=== PATIENT | female | born 1960 | race Caucasian/White ===

== ENCOUNTER → 2018-06-12 11:07 | Outpatient (CLI) | payer OTHER, MEDICAID, SELFPAY ==
--- NOTE | 2018-06-12 | DI.RAD.S_ITS ---
PROCEDURE: XR CHEST 2V INDICATIONS: COUGH / WT LOSS TECHNIQUE: 2 views of the chest were acquired. COMPARISON: None. FINDINGS: Surgical changes and devices: None. Lungs and pleura: No pleural effusions or pneumothorax. Lungs are clear. Mediastinum: Mediastinal contours are normal. Heart size is normal. Bones and chest wall: No suspicious bony abnormalities. Soft tissues appear unremarkable. IMPRESSION: Normal for age, source of current cough symptoms is not seen. Dictated by: Benito Ibarra M.D. on 06/12/2018 at 12:17 Approved by: Benito Ibarra M.D. on 06/12/2018 at 12:17
== END ==
PROVIDERS: PCP Family Medicine; Visit Provider Family Medicine
DX: R05 Cough (principal); R63.4 Abnormal weight loss
CPT/HCPCS: 71046

== ENCOUNTER → 2018-09-30 10:40 | Outpatient (CLI) | payer OTHER, MEDICAID, SELFPAY ==
--- NOTE | 2018-09-30 | DI.RAD.S_ITS ---
PROCEDURE: XR CERVICAL SPINE 2V OR 3V INDICATIONS: NECK PAIN TECHNIQUE: 3 view(s) of the cervical spine were acquired. COMPARISON: None. FINDINGS: Bones: No fractures or dislocations to the C7-T1 level. The lateral masses of C1 appear intact on the odontoid view. No suspicious bony lesions. There is overall straightening of normal cervical curvature. Moderate to severe disc space narrowing is present C6-7, mild at C5-6 and C7-T1. Small anterior osteophytes are present. Soft tissues: No prevertebral soft tissue swelling. IMPRESSION: Cervical straightening with degenerative change. Dictated by: Coby Mccray M.D. on 09/30/2018 at 12:53 Approved by: Coby Mccray M.D. on 09/30/2018 at 12:54
== END ==
PROVIDERS: PCP Family Medicine; Visit Provider Family Medicine
DX: M54.2 Cervicalgia (principal); M47.812 Spondylosis without myelopathy or radiculopathy, cervical region
CPT/HCPCS: 72040

== ENCOUNTER → 2019-02-18 11:43 | Outpatient (CLI) | payer OTHER, MEDICAID, SELFPAY ==
--- NOTE | 2019-02-18 | DI.US.S_ITS ---
PROCEDURE: US EXTREMITY NONVASC UPPER LT INDICATIONS: LEFT FOREARM MASS TECHNIQUE: Real-time scanning was performed of the left forearm, with image documentation. COMPARISON: None. FINDINGS: Focus ultrasound examination in left forearm the patient's reported area of palpable lump shows 5.2 x 0.9 x 4 cm fairly homogeneously echogenic structure within forearm subcutaneous soft tissue. No significant internal vascularity is seen. No evidence of underlying muscle involvement. IMPRESSION: 5.2 x 0.9 x 4 cm solid appearing lesion involving subcutaneous soft tissue of left forearm, and may represent lipoma. Clinical correlation and followup is recommended. If indicated, MRI of left forearm can be done for further evaluation. Dictated by: Brayan Lott M.D. on 02/18/2019 at 15:43 Approved by: Brayan Lott M.D. on 02/18/2019 at 15:45
== END ==
PROVIDERS: PCP Student in an Organized Health Care Education/Training Program; Visit Provider Student in an Organized Health Care Education/Training Program
DX: R22.32 Localized swelling, mass and lump, left upper limb (principal)
CPT/HCPCS: 76882

== ENCOUNTER → 2019-05-01 12:27 | Outpatient (CLI) | payer OTHER, MEDICAID, SELFPAY ==
--- NOTE | 2019-05-01 12:28 | DI.MRI.S_ITS ---
PROCEDURE: MR CERVICAL SPINE WO CON INDICATIONS: Cervical radiculopathy TECHNIQUE: Noncontrast sagittal T1 spin echo and T2 fast spin echo, sagittal STIR, foraminal oblique sagittal T2 fast spin echo, and axial gradient echo or T2 fast spin echo through the cervical spine. COMPARISON: [facility], , C-SPINE WITHOUT CONTRAST, 10/03/2009, 17:05. FINDINGS: Image quality: Excellent. Alignment and Curvature: There is mild straightening of normal cervical lordosis. No spondylolisthesis. Bone Marrow: Marrow demonstrates normal overall signal. Spinal Cord: Visualized spinal cord has normal size and signal. No cerebellar tonsillar herniation. Paraspinous Soft Tissues: No paravertebral masses. Prevertebral soft tissues are normal in thickness. C2-C3: Normal appearance. C3-C4: Mild broad-based disc bulge and bilateral facet hypertrophic changes are seen with mild central canal stenosis and left-sided neuroforaminal narrowing. C4-C5: Broad-based disc bulge and bilateral facet hypertrophic changes are seen with mild to moderate central canal stenosis and bilateral neuroforaminal narrowing. C5-C6: There is decreased intervertebral disc space and degenerative endplate changes. Broad-based disc bulge and bilateral facet hypertrophic changes are seen causing moderate central canal stenosis and left worse in right bilateral neuroforaminal narrowing. Bulging disc likely contacting bilateral exiting C6 nerve roots. C6-C7: Decreased intervertebral disc space and degenerative endplate changes are seen. Broad-based, more left-sided disc bulge and bilateral facet hypertrophic changes are seen causing moderate central canal stenosis and moderate to severe left-sided neuroforaminal narrowing. Mild to moderate right-sided neuroforaminal narrowing is seen. There is compression of bilateral exiting C7 nerve roots. C7-T1: Right paracentral disc herniation and bilateral facet hypertrophic changes are seen with mild central canal stenosis and mild bilateral neuroforaminal narrowing. IMPRESSION: 1. Degenerative disc bulge and bilateral facet hypertrophic changes at C3-4 through C7-T1 levels causing mild to moderate central canal stenosis and left worse than right bilateral neuroforaminal narrowing as described above. 2. No marrow edema. No acute compression fracture or spondylolisthesis. No gross abnormal cervical spinal cord signal. Dictated by: Brayan Lott M.D. on 05/01/2019 at 14:32 Approved by: Brayan Lott M.D. on 05/01/2019 at 14:37
== END ==
PROVIDERS: Family Provider Student in an Organized Health Care Education/Training Program; PCP Student in an Organized Health Care Education/Training Program; Visit Provider Physical Medicine & Rehabilitation
DX: M50.11 Cervical disc disorder with radiculopathy, high cervical region (principal); M48.02 Spinal stenosis, cervical region
CPT/HCPCS: 72141

== ENCOUNTER 2019-07-15 08:15 | Day surgery (SDC) | payer OTHER, MEDICAID, SELFPAY ==
[2019-07-14 08:42] VITALS: BMI 21.9
[2019-07-15 08:56] VITALS: BP 155/92; PULSE 48; RESP 16; TEMP 36.8; O2SAT 98; BMI 21.9
[2019-07-15] MEDS: LACTATED RINGERS 1,000 ML 42 ML IV (09:14)
--- NOTE | 2019-07-15 09:29 | PM.HP.1 ---
History of Present Illness History of Present Illness Date Patient Seen: 07/15/19 Time Patient Seen: 09:29 Chief complaint: 14501 Narrative: This patient is here for forearm mass excision. To review, she is a 58-year-old woman who has had a mass on the volar surface of her left forearm for several years. Recently it has become larger and more painful. It causes her constant aching pain, and at times more severe paresthesias at the site of the mass and down the hand. It has not broken open or bled, or drained any purulent fluid. She says it has always been soft, but has become more firm to the touch recently. She denies other symptoms or concerns. She does report generalized fatigue, neck pain, joint pain, joint swelling, muscle aches, and occasional palpitations. Since her last visit to see me in April the mass has continued to enlarge. The patient has a wearable heart monitor that was placed yesterday for palpitations. ROS: Thirteen system review is otherwise negative other than as mentioned below and in HPI. PE: GENERAL: Well groomed and cooperative. Appears stated age. Answers questions promptly and appropriately. Vital signs noted. HENT: Normocephalic, atraumatic. Hearing intact. Oral mucosa is pink and moist. EYES: Conjunctiva pink, sclera white, no periorbital swelling. CARDIOVASCULAR: Regular rate. No pedal edema. RESPIRATORY: Non tachypneic, breathing comfortably on room air. GASTROINTESTINAL: Abdomen soft and non-distended GENITALURINARY: No flank tenderness. MUSCULOSKELETAL: Equal tone and mass bilaterally. Left forearm, 4 cm x 5 cm soft, partially mobile partially fixed subcutaneous mass in the middle of the volar surface of the left forearm SKIN: Warm, dry, soft, appropriate color for ethnicity. No other lesions, rashes, or wounds. NEURO: Alert and Oriented X 3. No gross sensory deficits, or cognitive issues. PSYCH: Appropriate affect and mood. Patient History Medical History Arrhythmia (Acute) Cervical radiculopathy (Acute) Cervical spondylosis with radiculopathy (Acute) Chronic pain disorder (Acute) Current smoker (Acute) Depression (Acute) Hyperlipidemia (Acute) Hypertension (Acute) Pre-diabetes (Acute) Surgical History History of bunionectomy (Acute) Hx of hysterectomy (Acute) Family & Social History Family History Mother Hypertension Father Hypertension Gallstones Grandfather Stroke Grandmother Cancer Social History: household members spouse Tobacco & Substance use: Tobacco type cigarettes Smoking Status Current every day smoker alcohol intake current Substance Use Type does not use Meds Home Medications and Allergies Home Medications Medication Instructions Recorded Confirmed Type Tirosint 125 mcg PO DAILY #0 cap 03/06/16 07/15/19 History cholecalciferol (vitamin D3) 1,000 unit PO QDAY #0 tab 03/06/16 07/15/19 History [Vitamin D3] duloxetine [Cymbalta] 20 mg PO QDAY #30 cap 03/06/16 07/15/19 History ibuprofen [Advil Liqui-Gel] 200 mg PO PRN PRN #0 03/06/16 07/15/19 History metoprolol succinate 25 mg PO BID #30 ter 03/06/16 07/15/19 History multivitamin [Multiple Vitamins] 1 tab PO QDAY #0 tab 03/06/16 07/15/19 History magnesium oxide 400 mg PO DAILY cap 02/28/18 07/15/19 History atorvastatin 10 mg tablet 10 mg PO BEDTIME 04/08/19 07/15/19 History Allergies Allergy/AdvReac Type Severity Reaction Status Date / Time aspirin [ASPIRIN] Allergy Unknown Verified 07/15/19 08:44 Influenza Virus Vaccines Allergy Unknown Verified 07/15/19 08:44 [INFLUENZA VIRUS VACCINES] Sulfa (Sulfonamide Allergy Unknown Verified 07/15/19 08:44 Antibiotics) [SULFA (SULFONAMIDE ANTIBIOTICS)] varenicline [From Chantix] Allergy Vomiting Verified 07/15/19 08:44 Exam Vital Signs (past 8 hours): - 07/15/19 08:56 Temperature 98.3 F Pulse Rate 48 L Respiratory Rate 16 Blood Pressure 155/92 H Pulse Oximetry 98 Oxygen Delivery Method Room Air Objective Imaging us: Radiologist's impression: PROCEDURE: US EXTREMITY NONVASC UPPER LT INDICATIONS: LEFT FOREARM MASS TECHNIQUE: Real-time scanning was performed of the left forearm, with image documentation. COMPARISON: None. FINDINGS: Focus ultrasound examination in left forearm the patient's reported area of palpable lump shows 5.2 x 0.9 x 4 cm fairly homogeneously echogenic structure within forearm subcutaneous soft tissue. No significant internal vascularity is seen. No evidence of underlying muscle involvement. IMPRESSION: 5.2 x 0.9 x 4 cm solid appearing lesion involving subcutaneous soft tissue of left forearm, and may represent lipoma. Clinical correlation and followup is recommended. If indicated, MRI of left forearm can be done for further evaluation. Assessment & Plan Assessment and plan (1) Paresthesia of arm: Current visit: No Status: Acute (2) Neoplasm of unspecified behavior of bone, soft tissue, and skin: Current visit: No Status: Acute (3) Palpitations: Current visit: Yes Status: Acute Assessment & Plan narrative: Risks and benefits of forearm mass excisional biopsy were discussed with the patient including risk of bleeding, infection, scarring, recurrence, need for additional procedures, risks of anesthesia. The patient desires to proceed with the procedure. Time Spent With Patient Time with patient: 15-24 minutes Quality VTE Deep Vein Thrombosis/Pulmonary Embolism Present on Admission: No
[2019-07-15] MEDS: CEFAZOLIN 2 GM/100 ML FROZ.PIGGY IV (09:51)
--- NOTE | 2019-07-15 10:09 | SUR.OPER ---
Supine on padded OR bed, head on pillow, right arm secured on padded arm boards at <90 degrees abduction, left arm draped in sterile field on arm table, legs uncrossed, safety belt at thigh, blanket over lower legs.
[2019-07-15] MEDS: BUPIVACAINE 0.25% W/ EPI 30 ML VIAL INJ (10:15)
--- NOTE | 2019-07-15 10:35 | PM.OP.1 ---
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 Meticulous and prolonged dissection was required, necessitating monitored anesthesia care by anesthesiologist for the entire procedure.) Operative Notes Findings: 4 cm x 4 cm x 3 cm fatty mass with tendrils invading the muscle fascia, and adherent to the muscle Closure Type: primary Specimen(s): other (Left forearm fatty mass) Estimated Blood Loss (mL): 1 Procedure in detail: The patient was brought into the operating room and placed supine on the OR table. Sequential compression devices were placed on both legs and turned on. Appropriate perioperative antibiotics were given prior to the start of surgery. Sedation was given by the anesthesiologist. The left arm was prepped and draped in sterile fashion. Surgical time-out was conducted. Local anesthetic was then injected in the skin overlying the left forearm mass. An 8 cm longitudinal incision was made in the anesthetized area he has any 15 blade the incision was carried down through the dermis and subcutaneous fat using cautery. A fatty mass was encountered. It was not easily mobile, but was found to be adherent to the underlying fascia and muscle. Tedious dissection was undertaken and was carried circumferentially around the mass until I reached its base. There was an adherent artery and vein, which appeared to be minor branches of the cephalic vein and brachial artery. I dissected the mass free from these vessels and divided some small branches coming from the larger vessels into the mass. There were tender rolls of the mass attached to the muscle fascia and extending toward the muscle. I divided these and removed the entire mass from the field, passed it off the table for pathology. I then ensured hemostasis using cautery for a few small bleeders. The remaining field was then clean with good hemostasis, and I closed the wound in layers using 3 0 Vicryl and 4 Monocryl. The skin edges were sealed with Dermabond, and a pressure dressing was applied using a 4 x 4 gauze and Tegaderm. The patient tolerated the procedure well. Needle sponge and instrument counts were correct x2 at the end of the procedure. The specimen was sent to pathology. The patient was then transferred to the postanesthesia care unit in stable condition. Complications: none Post-operative Condition: stable Disposition: PACU
[2019-07-15 10:42] VITALS: PULSE 48; RESP 10; TEMP 36.1; O2SAT 96
[2019-07-15 10:46] VITALS: BP 117/72; PULSE 48; RESP 10; TEMP 36.3; O2SAT 95
[2019-07-15 10:53] VITALS: BP 144/80; PULSE 40; RESP 12; TEMP 36.6; O2SAT 98
--- NOTE | 2019-07-15 10:56 | SUR.PHASEII ---
Per anesthesia, patient to go straight to Phase 11 after procedure.
[2019-07-15 11:00] VITALS: BP 131/77; PULSE 58; RESP 18; TEMP 36.7; O2SAT 99
== END 2019-07-15 11:20 | disposition home or self-care (01) ==
PROVIDERS: Family Provider Student in an Organized Health Care Education/Training Program; PCP Student in an Organized Health Care Education/Training Program; Referring Provider Surgery; Visit Provider Surgery
PROC: (CPT 25073; principal; 2019-07-15 09:45)
DX: R22.32 Localized swelling, mass and lump, left upper limb (principal); R20.2 Paresthesia of skin
CPT/HCPCS: 25073; J0690; J2250; J2704; J3010